=== PATIENT | male | born 1960 | race African-American/Black ===

== ENCOUNTER 2023-10-05 16:12 | Inpatient (IN) | payer BC, OTHER ==
[2023-10-05 17:26] LABS: BASO % 0.4 % (0-2.0); EOS % 0.1 % (0-4.5); HEMATOCRIT 27.9 % (35.4-49); HEMOGLOBIN 8.6 GM/dL (11.7-16.9); MCHC 30.7 g/dl (32.0-35.9); MEAN CELL VOLUME 91.2 fl (80-96); MEAN PLT VOLUME 8.5 fl (7.5-11.1); MONO % 4.6 % (3.8-10.2); NEUT % 83.9 % (42.8-82.8); PLATELET COUNT 292 10^3/uL (134-434); RBC 3.06 M/mm3 (4.00-5.60); RDW 20.1 % (11.9-15.9)
[2023-10-05 17:27] LABS: VENOUS BASE EXCESS -1.9 mmol/L (-2-2); VENOUS O2 SATURATION 59.7 % (70-80); VENOUS PCO2 40.7 mmHg (38-52); VENOUS PH 7.374 (7.310-7.410)
[2023-10-05] MEDS: SODIUM CHLORIDE 0.9% 500 ML INFUS.BAG IV ONE (17:28)
[2023-10-05 17:32] LABS: WHITE BLOOD COUNT 36.5 K/mm3 (4.0-10.0)
[2023-10-05] MEDS ORDERED: VANCOMYCIN 2,000 MG in DEXTROSE 5%-WATER - 500 ML IVPB ONE (17:32)
[2023-10-05 17:35] LABS: PROTHROMBIN TIME (PATIENT) 70.7 SEC (9.7-13.0)
[2023-10-05 17:38] LABS: ACTIVATED PTT 44.1 SECONDS (25.2-36.5)
[2023-10-05 17:43] LABS: POTASSIUM 4.6 mmol/L (3.5-5.1)
[2023-10-05 17:46] LABS: BLOOD UREA NITROGEN 16.4 mg/dL (7-18); CALCIUM 11.5 mg/dL (8.5-10.1)
[2023-10-05] MEDS ORDERED: MIDAZOLAM HCL 2 MG/2 ML SINGLE DOSE VIAL ONE (17:46)
[2023-10-05 17:47] LABS: INR 6.61 (0.83-1.09)
[2023-10-05 17:49] LABS: CREATININE 1.3 mg/dL (0.55-1.3)
[2023-10-05 17:51] LABS: BILIRUBIN,TOTAL 1.1 mg/dL (0.2-1); TOT PROT 6.3 g/dl (6.4-8.2)
[2023-10-05 17:52] LABS: LACTIC ACID 2.6 mmol/L (0.4-2.0)
[2023-10-05] MEDS: MIDAZOLAM HCL 2 MG/2 ML SINGLE DOSE VIAL IVPUSH ONE (17:54)
[2023-10-05] MEDS ORDERED: PIPERACILLIN/TAZOB 4.5 GM 4.5 GM/100 ML BAG IVPB ONE (18:15)
[2023-10-05 18:26] LABS: ANISOCYTOSIS 2+; MACROCYTOSIS 1+; OVALOCYTE 1+; TARGET CELLS 1+
[2023-10-05] MEDS ORDERED: HALOPERIDOL LACTATE 5 MG/ML ONE ×2 (19:01→20:02)
[2023-10-05] MEDS: HALOPERIDOL LACTATE 5 MG/ML IM ONE ×2 (19:08→20:11)
[2023-10-05] MEDS: PIPERACILLIN/TAZOB 4.5 GM 4.5 GM in DEXTROSE 5%-WATER 100 ML IVPB ONE (19:39)
[2023-10-05] MEDS: LACTATED RINGERS SOLUTION 1000 ML INFUS.BAG IV ONE (20:00)
[2023-10-05] MEDS: LORazepam 2 MG/ML SDV VIAL IVPUSH ONE (20:11)
[2023-10-05] MEDS: OLANZapine 5 MG TABLET PO ONE (20:20)
[2023-10-05] MEDS: VANCOMYCIN/WATER 2 GRAMS 2,000 MG/400 ML PIGGYBACK IVPB ONE (20:55)
[2023-10-05 20:56] LABS: EPI CELLS 25 /uL (0-25.1); HYALINE CASTS 15 /uL (0-3.1); URINE APPEARANCE TURBID; URINE BACTERIA 3 /uL (0-1359); URINE BILIRUBIN 1+ (NEGATIVE); URINE COLOR DK YELLOW; URINE GLUCOSE (UA) NEGATIVE (NEGATIVE); URINE KETONE TRACE (NEGATIVE); URINE LEUK ESTERASE NEGATIVE (NEGATIVE); URINE NITRITE NEGATIVE (NEGATIVE); URINE PROTEIN 1+ (NEGATIVE); URINE RBC 18 /uL (0-23.9); URINE WBC 53 /uL (0-25.8)
[2023-10-06] MEDS: SODIUM CHLORIDE 1,000 ML IV SCH (01:21)
[2023-10-06] MEDS ORDERED: PIPERACILLIN/TAZOB 4.5 GM 4.5 GM/100 ML BAG IVPB ONE (03:39)
[2023-10-06] MEDS ORDERED: oxyCODONE HCL 5 MG TABLET ONE (03:49)
[2023-10-06] MEDS: oxyCODONE HCL 5 MG TABLET PO PRN (03:56)
[2023-10-06] MEDS: PIPERACILLIN/TAZOB 4.5 GM 4.5 GM in DEXTROSE 5%-WATER 100 ML IVPB SCH ×3 (03:57→20:40)
[2023-10-06] MEDS ORDERED: HALOPERIDOL LACTATE 5 MG/ML IM ONE (04:09)
[2023-10-06] MEDS: HALOPERIDOL LACTATE 5 MG/ML IM ONE ×2 (04:30→13:24)
[2023-10-06] MEDS ORDERED: oxyCODONE HCL 5 MG TABLET PO PRN (05:46)
[2023-10-06] MEDS ORDERED: ACETAMINOPHEN 500 MG TABLET (FP) PO PRN ×2 (05:49→18:27)
[2023-10-06 06:39] LABS: HEMATOCRIT 24.6 % (35.4-49); HEMOGLOBIN 7.7 GM/dL (11.7-16.9); MCH 28.5 pg (25.7-33.7); MCHC 31.4 g/dl (32.0-35.9); MEAN CELL VOLUME 90.6 fl (80-96); MEAN PLT VOLUME 7.9 fl (7.5-11.1); PLATELET COUNT 227 10^3/uL (134-434); PROTHROMBIN TIME (PATIENT) 63.6 SEC (9.7-13.0); RBC 2.72 M/mm3 (4.00-5.60); RDW 19.3 % (11.9-15.9)
[2023-10-06 06:41] LABS: WHITE BLOOD COUNT 35.4 K/mm3 (4.0-10.0)
[2023-10-06 06:42] LABS: ACTIVATED PTT 42.7 SECONDS (25.2-36.5)
[2023-10-06 06:50] LABS: POTASSIUM 3.7 mmol/L (3.5-5.1)
[2023-10-06 06:52] LABS: MAGNESIUM 1.9 mg/dL (1.8-2.4)
[2023-10-06 06:53] LABS: ALBUMIN 1.8 g/dl (3.4-5.0); CALCIUM 10.7 mg/dL (8.5-10.1)
[2023-10-06 06:54] LABS: BILIRUBIN,DIRECT 0.8 mg/dL (0.0-0.2); BLOOD UREA NITROGEN 20.4 mg/dL (7-18)
[2023-10-06 06:55] LABS: INR 5.93 (0.83-1.09)
[2023-10-06 06:56] LABS: CREATININE 1.2 mg/dL (0.55-1.3); PHOSPHOROUS 3.9 mg/dL (2.5-4.9)
[2023-10-06 06:58] LABS: BILIRUBIN,TOTAL 1.2 mg/dL (0.2-1); TOT PROT 5.6 g/dl (6.4-8.2)
[2023-10-06] MEDS: LACTATED RINGERS SOLUTION 1,000 ML/1,000 ML INFUS.BAG IV SCH ×2 (08:50→20:14)
[2023-10-06] MEDS ORDERED: PIPERACILLIN/TAZOBACTAM 4.5 GM VIAL IVPB ONE (09:22)
[2023-10-06 09:57] LABS: ANISOCYTOSIS 1+; MACROCYTOSIS 0; OVALOCYTE 1+
[2023-10-06] MEDS: VANCOMYCIN/WATER 1250 MG 1,250 MG/250 ML BAG IVPB SCH ×2 (11:43→13:24)
[2023-10-06 12:18] LABS: LACTIC ACID 2.1 mmol/L (0.4-2.0)
[2023-10-06] MEDS: INSULIN ASPART SLIDING SCALE (NOVOLOG) 1 VIAL SQ SCH ×2 (16:32→21:51)
[2023-10-06 18:16] VITALS: BMI 36.8
[2023-10-06 19:45] LABS: ARTERIAL BLD GAS O2 SATURATION 95.2 % (95-98); ARTERIAL BLOOD GAS BASE EXCESS 1.9 mmol/L (-2-2); ARTERIAL BLOOD GAS PO2 71.3 mmHg (80-100); ARTERIAL BLOOD GAS pH 7.463 (7.350-7.450)
[2023-10-06 19:47] LABS: ALLENS TEST POSITIVE
[2023-10-06] MEDS: SODIUM CHLORIDE 1,000 ML IV STA (20:16)
[2023-10-06] MEDS: HALOPERIDOL LACTATE 5 MG/ML IM PRN (20:36)
[2023-10-06] MEDS: VANCOMYCIN PREMIX 1.75 GM 1,750 MG/350 ML PIGGYBACK IVPB SCH (21:14)
[2023-10-06] MEDS: ATORVASTATIN CA 40 MG TABLET (FP) PO SCH (21:14)
[2023-10-06] MEDS ORDERED: VANCOMYCIN PREMIX 1.75 GM 1,750 MG/350 ML PIGGYBACK IVPB SCH (22:00)
[2023-10-06] MEDS ORDERED: ATORVASTATIN CA 40 MG TABLET (FP) PO SCH (22:00)
[2023-10-07] MEDS: ACETAMINOPHEN 1000 MG/100 ML BAG IVPB PRN (00:48)
[2023-10-07 08:29] LABS: PROTHROMBIN TIME (PATIENT) 74.2 SEC (9.7-13.0)
[2023-10-07 08:40] LABS: BASO % 0.2 % (0-2.0); EOS % 0.2 % (0-4.5); HEMATOCRIT 23.8 % (35.4-49); HEMOGLOBIN 7.5 GM/dL (11.7-16.9); LYMPH % 6.6 % (8-40); MCH 28.7 pg (25.7-33.7); MCHC 31.7 g/dl (32.0-35.9); MEAN CELL VOLUME 90.8 fl (80-96); MEAN PLT VOLUME 8.4 fl (7.5-11.1); MONO % 5.4 % (3.8-10.2); NEUT % 87.6 % (42.8-82.8); PLATELET COUNT 202 10^3/uL (134-434); RBC 2.63 M/mm3 (4.00-5.60); RDW 19.6 % (11.9-15.9)
[2023-10-07 08:46] LABS: BLOOD UREA NITROGEN 16.9 mg/dL (7-18); CALCIUM 11.2 mg/dL (8.5-10.1); MAGNESIUM 1.8 mg/dL (1.8-2.4); WHITE BLOOD COUNT 42.4 K/mm3 (4.0-10.0)
[2023-10-07 08:49] LABS: PHOSPHOROUS 3.5 mg/dL (2.5-4.9)
[2023-10-07 08:52] LABS: BILIRUBIN,TOTAL 1.6 mg/dL (0.2-1)
[2023-10-07 09:12] LABS: ANISOCYTOSIS 1+; MACROCYTOSIS 1+; TARGET CELLS 1+
[2023-10-07 09:16] LABS: POTASSIUM 3.2 mmol/L (3.5-5.1)
[2023-10-07 09:22] LABS: INR 6.95 (0.83-1.09)
[2023-10-07] MEDS: KCL 10 MEQ IVPB 10 MEQ/100 ML INFUS.BAG IVPB SCH (12:16)
[2023-10-07 15:19] LABS: HEMATOCRIT 26.4 % (35.4-49); HEMOGLOBIN 8.3 GM/dL (11.7-16.9); MCH 28.5 pg (25.7-33.7); MCHC 31.6 g/dl (32.0-35.9); MEAN CELL VOLUME 90.3 fl (80-96); PLATELET COUNT 198 10^3/uL (134-434); RBC 2.92 M/mm3 (4.00-5.60); RDW 19.8 % (11.9-15.9)
[2023-10-07] MEDS: FUROSEMIDE 40 MG/4 ML INJECTABLE VIAL IVPUSH ONE (18:08)
[2023-10-08] MEDS: hydrOXYzine PAMOATE 25 MG CAPSULE (FP) PO ONE (01:16)
[2023-10-08] MEDS: LACTULOSE 20 GM/30 ML UDC (FOR RECTAL USE ONLY) PR ONE (01:28)
[2023-10-08 10:23] LABS: HEMATOCRIT 25.3 % (35.4-49); HEMOGLOBIN 7.9 GM/dL (11.7-16.9); MCH 28.1 pg (25.7-33.7); MCHC 31.2 g/dl (32.0-35.9); MEAN CELL VOLUME 90.2 fl (80-96); MEAN PLT VOLUME 8.5 fl (7.5-11.1); PLATELET COUNT 182 10^3/uL (134-434); RBC 2.81 M/mm3 (4.00-5.60); RDW 19.9 % (11.9-15.9)
[2023-10-08 10:27] LABS: WHITE BLOOD COUNT 41.6 K/mm3 (4.0-10.0)
[2023-10-08 10:38] LABS: POTASSIUM 3.2 mmol/L (3.5-5.1)
[2023-10-08 10:40] LABS: BLOOD UREA NITROGEN 21.1 mg/dL (7-18); CALCIUM 11.5 mg/dL (8.5-10.1); MAGNESIUM 1.7 mg/dL (1.8-2.4)
[2023-10-08 10:42] LABS: ALBUMIN 1.6 g/dl (3.4-5.0)
[2023-10-08 10:44] LABS: CREATININE 1.1 mg/dL (0.55-1.3); PHOSPHOROUS 4.4 mg/dL (2.5-4.9)
[2023-10-08 10:46] LABS: BILIRUBIN,TOTAL 1.8 mg/dL (0.2-1); TOT PROT 5.9 g/dl (6.4-8.2)
[2023-10-08] MEDS: INSULIN ASPART SLIDING SCALE (NOVOLOG) 1 VIAL SQ SCH (12:18)
[2023-10-08] MEDS: SODIUM CHLORIDE 1,000 ML IV SCH (12:19)
[2023-10-08] MEDS: ACETAMINOPHEN 1000 MG/100 ML BAG IVPB PRN (17:01)
[2023-10-08] MEDS: fentaNYL 75mcg/hr PATCH.TD72 TD SCH (17:55)
[2023-10-08] MEDS: POTASSIUM PHOSPHATE 15 MM in SODIUM CHLORIDE 250 ML IVPB ONE (18:05)
[2023-10-08] MEDS: CALCITONIN - SALMON SYNTHETIC 400 UNIT/2 ML VIAL IM ONE (20:52)
[2023-10-09 02:01] LABS: POTASSIUM 3.1 mmol/L (3.5-5.1)
[2023-10-09 02:04] LABS: CALCIUM 10.6 mg/dL (8.5-10.1)
[2023-10-09 02:05] LABS: ALBUMIN 1.5 g/dl (3.4-5.0); BLOOD UREA NITROGEN 26.1 mg/dL (7-18)
[2023-10-09 02:07] LABS: CREATININE 1.2 mg/dL (0.55-1.3)
[2023-10-09 02:09] LABS: BILIRUBIN,TOTAL 1.7 mg/dL (0.2-1); TOT PROT 5.7 g/dl (6.4-8.2)
[2023-10-09] MEDS: KCL 10 MEQ IVPB 10 MEQ/100 ML INFUS.BAG IVPB SCH (03:28)
[2023-10-09 07:46] LABS: HEMATOCRIT 25.4 % (35.4-49); HEMOGLOBIN 7.7 GM/dL (11.7-16.9); MCHC 30.5 g/dl (32.0-35.9); MEAN CELL VOLUME 91.8 fl (80-96); MEAN PLT VOLUME 8.8 fl (7.5-11.1); PLATELET COUNT 166 10^3/uL (134-434); RBC 2.77 M/mm3 (4.00-5.60); RDW 19.9 % (11.9-15.9)
[2023-10-09 07:52] LABS: WHITE BLOOD COUNT 43.7 K/mm3 (4.0-10.0)
[2023-10-09 07:55] LABS: ACTIVATED PTT 48.6 SECONDS (25.2-36.5)
[2023-10-09 08:04] LABS: POTASSIUM 3.7 mmol/L (3.5-5.1)
[2023-10-09 08:08] LABS: ALBUMIN 1.5 g/dl (3.4-5.0); BLOOD UREA NITROGEN 29.6 mg/dL (7-18)
[2023-10-09 08:10] LABS: CALCIUM 10.3 mg/dL (8.5-10.1)
[2023-10-09 08:11] LABS: CREATININE 1.1 mg/dL (0.55-1.3)
[2023-10-09 08:13] LABS: BILIRUBIN,TOTAL 1.7 mg/dL (0.2-1); TOT PROT 5.8 g/dl (6.4-8.2)
[2023-10-09 08:43] LABS: PROTHROMBIN TIME (PATIENT) 132.8 SEC (9.7-13.0)
[2023-10-09 08:46] LABS: INR 12.43 (0.83-1.09)
[2023-10-09] MEDS: CALCITONIN - SALMON SYNTHETIC 400 UNIT/2 ML VIAL IM ONE (09:36)
[2023-10-09] MEDS ORDERED: CALCITONIN - SALMON SYNTHETIC 400 UNIT/2 ML VIAL IM SCH (10:00)
[2023-10-09 10:45] LABS: ANISOCYTOSIS 1+; MACROCYTOSIS 0
[2023-10-09] MEDS: VANCOMYCIN PREMIX 1.5 GM 1,500 MG/300 ML BAG IVPB ONE (13:34)
[2023-10-09] MEDS: THIAMINE HCL 200 MG/2 ML VIAL IVPB ONE (15:20)
[2023-10-09] MEDS: SODIUM CHLORIDE 1,000 ML IV SCH (15:21)
[2023-10-09] MEDS: AMINO ACIDS 4.25%/D5W 1,000 ML IV SCH (16:36)
[2023-10-10 07:05] LABS: HEMATOCRIT 24.7 % (35.4-49); HEMOGLOBIN 7.5 GM/dL (11.7-16.9); MCH 28.2 pg (25.7-33.7); MCHC 30.5 g/dl (32.0-35.9); MEAN CELL VOLUME 92.2 fl (80-96); MEAN PLT VOLUME 9.2 fl (7.5-11.1); PLATELET COUNT 153 10^3/uL (134-434); RBC 2.68 M/mm3 (4.00-5.60); RDW 20.1 % (11.9-15.9)
[2023-10-10 07:15] LABS: ACTIVATED PTT 49.7 SECONDS (25.2-36.5)
[2023-10-10 07:33] LABS: WHITE BLOOD COUNT 42.9 K/mm3 (4.0-10.0)
[2023-10-10 07:34] LABS: ALBUMIN 1.4 g/dl (3.4-5.0)
[2023-10-10 07:36] LABS: BILIRUBIN,DIRECT 1.3 mg/dL (0.0-0.2); PHOSPHOROUS 2.7 mg/dL (2.5-4.9)
[2023-10-10 07:38] LABS: BILIRUBIN,TOTAL 1.7 mg/dL (0.2-1); TOT PROT 5.7 g/dl (6.4-8.2)
[2023-10-10 08:34] LABS: INR > 15.00 (0.83-1.09)
[2023-10-10 08:35] LABS: ANISOCYTOSIS 1+; MACROCYTOSIS 1+; TARGET CELLS 1+
[2023-10-10] MEDS: SODIUM CHLORIDE 1,000 ML IV STA (12:03)
[2023-10-10] MEDS: SODIUM CHLORIDE 1,000 ML IV SCH (16:04)
[2023-10-10] MEDS ORDERED: ACETAMINOPHEN INJECTION 100 ML IVPB ONE (18:19)
[2023-10-10] MEDS: PHYTONADIONE 10 MG/1 ML AMP SQ ONE (18:24)
[2023-10-10] MEDS: VANCOMYCIN/WATER FOR INJ (PEG) 1,000 MG/200 ML BAG IVPB ONE (18:24)
[2023-10-10] MEDS: ACETAMINOPHEN 1000 MG/100 ML BAG IVPB ONE (18:24)
[2023-10-11] MEDS: ACETAMINOPHEN 1000 MG/100 ML BAG IVPB ONE (05:16)
[2023-10-11 08:08] LABS: MCHC 30.1 g/dl (32.0-35.9); MEAN CELL VOLUME 93.1 fl (80-96); MEAN PLT VOLUME 9.1 fl (7.5-11.1); PLATELET COUNT 147 10^3/uL (134-434); RBC 2.47 M/mm3 (4.00-5.60); RDW 20.6 % (11.9-15.9)
[2023-10-11 08:11] LABS: PROTHROMBIN TIME (PATIENT) 58.7 SEC (9.7-13.0)
[2023-10-11 08:24] LABS: INR 5.46 (0.83-1.09)
[2023-10-11 08:26] LABS: HEMOGLOBIN 6.9 GM/dL (11.7-16.9); WHITE BLOOD COUNT 39.2 K/mm3 (4.0-10.0)
[2023-10-11 09:25] LABS: ANISOCYTOSIS 2+; MACROCYTOSIS 0
[2023-10-11 09:37] LABS: PHOSPHOROUS 2.7 mg/dL (2.5-4.9)
[2023-10-11] MEDS: ACETAMINOPHEN 1000 MG/100 ML BAG IVPB PRN (11:31)
[2023-10-11] MEDS: LACTULOSE 20 GM/30 ML UDC (FOR RECTAL USE ONLY) PR ONE (13:28)
[2023-10-11 16:48] LABS: HEMATOCRIT 22.2 % (35.4-49); MCH 27.6 pg (25.7-33.7); MEAN PLT VOLUME 9.3 fl (7.5-11.1); PLATELET COUNT 130 10^3/uL (134-434); RBC 2.41 M/mm3 (4.00-5.60); RDW 20.8 % (11.9-15.9)
[2023-10-11 16:53] LABS: HEMOGLOBIN 6.7 GM/dL (11.7-16.9)
[2023-10-11] MEDS: FENTANYL PATCH WASTE TD PRN (19:29)
[2023-10-11] MEDS: INSULIN (LEVEMIR) 100 UNITS/ML UNITS SQ SCH (22:46)
[2023-10-12 09:51] LABS: HEMATOCRIT 25.1 % (35.4-49); HEMOGLOBIN 7.8 GM/dL (11.7-16.9); MCH 27.3 pg (25.7-33.7); MCHC 30.9 g/dl (32.0-35.9); MEAN CELL VOLUME 88.2 fl (80-96); MEAN PLT VOLUME 9.6 fl (7.5-11.1); PLATELET COUNT 124 10^3/uL (134-434); RBC 2.84 M/mm3 (4.00-5.60); RDW 24.7 % (11.9-15.9)
[2023-10-12 10:01] LABS: INR 2.51 (0.83-1.09); PROTHROMBIN TIME (PATIENT) 28.1 SEC (9.7-13.0)
[2023-10-12 10:02] LABS: WHITE BLOOD COUNT 38.1 K/mm3 (4.0-10.0)
[2023-10-12 10:03] LABS: ALBUMIN 1.4 g/dl (3.4-5.0); CALCIUM 9.5 mg/dL (8.5-10.1)
[2023-10-12 10:06] LABS: CREATININE 1.8 mg/dL (0.55-1.3)
[2023-10-12 10:07] LABS: PHOSPHOROUS 2.3 mg/dL (2.5-4.9)
[2023-10-12 10:08] LABS: BILIRUBIN,TOTAL 3.4 mg/dL (0.2-1); TOT PROT 5.6 g/dl (6.4-8.2)
[2023-10-12] MEDS ORDERED: KCL 10 MEQ IVPB 10 MEQ/100 ML INFUS.BAG IVPB SCH (12:00)
[2023-10-12] MEDS: POTASSIUM PHOSPHATE 30 MM in SODIUM CHLORIDE 500 ML IVPB ONE (13:44)
[2023-10-12] MEDS: VANCOMYCIN/WATER FOR INJ (PEG) 1,000 MG/200 ML BAG IVPB ONE (14:12)
[2023-10-12] MEDS: LACTULOSE 10 GM/15 ML BULK BOTTLE RC SCH (14:52)
[2023-10-12] MEDS: LACTULOSE 20 GM/30 ML UDC (FOR ORAL USE ONLY) PO SCH (18:34)
[2023-10-12] MEDS: INSULIN (LEVEMIR) 100 UNITS/ML UNITS SQ SCH (22:24)
[2023-10-12] MEDS: LACTULOSE 20 GM/30 ML UDC (FOR ORAL USE ONLY) NGT SCH (23:13)
[2023-10-13 08:23] LABS: INR 2.19 (0.83-1.09); PROTHROMBIN TIME (PATIENT) 24.2 SEC (9.7-13.0)
[2023-10-13 08:24] LABS: HEMATOCRIT 24.1 % (35.4-49); HEMOGLOBIN 7.3 GM/dL (11.7-16.9); MCH 27.3 pg (25.7-33.7); MCHC 30.4 g/dl (32.0-35.9); MEAN CELL VOLUME 89.8 fl (80-96); MEAN PLT VOLUME 10.2 fl (7.5-11.1); PLATELET COUNT 129 10^3/uL (134-434); RBC 2.69 M/mm3 (4.00-5.60); RDW 24.6 % (11.9-15.9)
[2023-10-13 10:07] LABS: ANISOCYTOSIS 3+; MACROCYTOSIS 0; TARGET CELLS 2+
[2023-10-13] MEDS: VANCOMYCIN 500 MG in DEXTROSE 5%-WATER 100 ML IVPB ONE (13:51)
[2023-10-13] MEDS: morphine SULFATE 4 MG/ML VIAL IVPUSH PRN (15:16)
[2023-10-13] MEDS ORDERED: LACTATED RINGERS SOLUTION 1,000 ML/1,000 ML INFUS.BAG IV SCH (18:15)
[2023-10-13] MEDS: LACTATED RINGERS SOLUTION 1,000 ML/1,000 ML INFUS.BAG IV SCH (18:43)
[2023-10-13 19:20] LABS: HEMATOCRIT 23.2 % (35.4-49); MCH 27.3 pg (25.7-33.7); MEAN CELL VOLUME 91.1 fl (80-96); MEAN PLT VOLUME 9.9 fl (7.5-11.1); PLATELET COUNT 119 10^3/uL (134-434); RBC 2.55 M/mm3 (4.00-5.60); RDW 25.2 % (11.9-15.9)
[2023-10-13 19:26] LABS: WHITE BLOOD COUNT 36.6 K/mm3 (4.0-10.0)
[2023-10-13 19:57] LABS: LACTIC ACID 3.4 mmol/L (0.4-2.0)
[2023-10-13] MEDS ORDERED: ACETAMINOPHEN 500 MG TABLET (FP) PO PRN (20:32)
[2023-10-13] MEDS: ACETAMINOPHEN 1000 MG/100 ML BAG IVPB ONE (20:46)
[2023-10-13] MEDS: SODIUM CHLORIDE 1,000 ML IV STA (20:47)
[2023-10-13 20:57] LABS: MAGNESIUM 1.9 mg/dL (1.8-2.4)
[2023-10-13 21:00] LABS: PHOSPHOROUS 3.2 mg/dL (2.5-4.9)
[2023-10-13] MEDS: INSULIN (LEVEMIR) 100 UNITS/ML UNITS SQ SCH (21:37)
[2023-10-14 00:10] LABS: LACTIC ACID 2.7 mmol/L (0.4-2.0)
[2023-10-14] MEDS: MAGNESIUM SULF 50% (8.12 MEQ/2 ML-1 GM VIAL) IVPB ONE (00:20)
[2023-10-14] MEDS: LACTATED RINGERS SOLUTION 1,000 ML/1,000 ML INFUS.BAG IV STA (08:56)
[2023-10-14 09:43] LABS: HEMATOCRIT 21.4 % (35.4-49); MCH 27.3 pg (25.7-33.7); MCHC 30.3 g/dl (32.0-35.9); MEAN CELL VOLUME 90.2 fl (80-96); MEAN PLT VOLUME 9.6 fl (7.5-11.1); PLATELET COUNT 119 10^3/uL (134-434); RBC 2.38 M/mm3 (4.00-5.60); RDW 24.6 % (11.9-15.9)
[2023-10-14 09:45] LABS: INR 2.36 (0.83-1.09)
[2023-10-14 09:55] LABS: POTASSIUM 3.2 mmol/L (3.5-5.1)
[2023-10-14 10:04] LABS: ALBUMIN 1.2 g/dl (3.4-5.0); CALCIUM 8.9 mg/dL (8.5-10.1)
[2023-10-14 10:05] LABS: BLOOD UREA NITROGEN 86.1 mg/dL (7-18); MAGNESIUM 2.2 mg/dL (1.8-2.4)
[2023-10-14 10:08] LABS: BILIRUBIN,DIRECT 3.8 mg/dL (0.0-0.2); CREATININE 1.9 mg/dL (0.55-1.3); PHOSPHOROUS 2.8 mg/dL (2.5-4.9)
[2023-10-14 10:09] LABS: BILIRUBIN,TOTAL 4.5 mg/dL (0.2-1); TOT PROT 5.4 g/dl (6.4-8.2)
[2023-10-14 10:14] LABS: WHITE BLOOD COUNT 35.5 K/mm3 (4.0-10.0)
[2023-10-14 10:15] LABS: HEMOGLOBIN 6.5 GM/dL (11.7-16.9)
[2023-10-14] MEDS: VANCOMYCIN 500 MG in DEXTROSE 5%-WATER - 100 ML IVPB ONE (14:59)
[2023-10-14] MEDS: KCL 10 MEQ IVPB 10 MEQ/100 ML INFUS.BAG IVPB SCH ×2 (15:30→18:39)
[2023-10-14] MEDS: LACTULOSE 20 GM/30 ML UDC (FOR RECTAL USE ONLY) PR SCH (15:30)
[2023-10-15 07:46] LABS: HEMATOCRIT 24.9 % (35.4-49); HEMOGLOBIN 7.6 GM/dL (11.7-16.9); MCHC 30.7 g/dl (32.0-35.9); MEAN CELL VOLUME 91.4 fl (80-96); RBC 2.73 M/mm3 (4.00-5.60)
[2023-10-15 07:52] LABS: INR 2.28 (0.83-1.09); PROTHROMBIN TIME (PATIENT) 25.2 SEC (9.7-13.0)
[2023-10-15 07:59] LABS: WHITE BLOOD COUNT 36.8 K/mm3 (4.0-10.0)
[2023-10-15 09:06] LABS: ANISOCYTOSIS 3+; CORRECTED WBC 32.86 K/mm3; MACROCYTOSIS 1+; TARGET CELLS 1+
[2023-10-15 11:11] LABS: POTASSIUM 3.8 mmol/L (3.5-5.1)
[2023-10-15 11:13] LABS: ALBUMIN 1.1 g/dl (3.4-5.0); BLOOD UREA NITROGEN 90.1 mg/dL (7-18); CALCIUM 8.8 mg/dL (8.5-10.1)
[2023-10-15 11:16] LABS: CREATININE 1.9 mg/dL (0.55-1.3)
[2023-10-15 11:18] LABS: TOT PROT 5.5 g/dl (6.4-8.2)
[2023-10-15] MEDS: SODIUM CHLORIDE 1,000 ML IV STA (13:54)
[2023-10-15] MEDS ORDERED: LACTULOSE 20 GM/30 ML UDC (FOR RECTAL USE ONLY) PR SCH (14:53)
[2023-10-15] MEDS: LACTULOSE 20 GM/30 ML UDC (FOR RECTAL USE ONLY) PR SCH (15:36)
[2023-10-15] MEDS: morphine SULFATE 4 MG/ML VIAL IVPUSH PRN (22:28)
[2023-10-16 09:24] LABS: HEMATOCRIT 23.3 % (35.4-49); HEMOGLOBIN 7.1 GM/dL (11.7-16.9); MCH 28.2 pg (25.7-33.7); MCHC 30.3 g/dl (32.0-35.9); MEAN CELL VOLUME 93.2 fl (80-96); MEAN PLT VOLUME 10.1 fl (7.5-11.1); PLATELET COUNT 148 10^3/uL (134-434); RDW 22.3 % (11.9-15.9)
[2023-10-16 09:33] LABS: WHITE BLOOD COUNT 36.3 K/mm3 (4.0-10.0)
[2023-10-16 09:41] LABS: POTASSIUM 4.1 mmol/L (3.5-5.1)
[2023-10-16 09:50] LABS: ALBUMIN 1.1 g/dl (3.4-5.0); BLOOD UREA NITROGEN 102.4 mg/dL (7-18); CALCIUM 8.9 mg/dL (8.5-10.1); MAGNESIUM 2.3 mg/dL (1.8-2.4)
[2023-10-16 09:53] LABS: CREATININE 2.4 mg/dL (0.55-1.3); PHOSPHOROUS 3.9 mg/dL (2.5-4.9)
[2023-10-16 09:56] LABS: TOT PROT 5.6 g/dl (6.4-8.2)
[2023-10-16 10:04] LABS: ANISOCYTOSIS 2+; CORRECTED WBC 31.84 K/mm3; MACROCYTOSIS 1+; TARGET CELLS 1+
[2023-10-17 06:36] LABS: INR 2.8 (0.83-1.09); PROTHROMBIN TIME (PATIENT) 30.7 SEC (9.7-13.0)
[2023-10-17 06:40] LABS: HEMATOCRIT 22.9 % (35.4-49); MCH 28.7 pg (25.7-33.7); MCHC 30.6 g/dl (32.0-35.9); PLATELET COUNT 150 10^3/uL (134-434); RBC 2.44 M/mm3 (4.00-5.60); RDW 22.9 % (11.9-15.9)
[2023-10-17 06:58] LABS: CHLORIDE 123 mmol/L (98-107); POTASSIUM 3.9 mmol/L (3.5-5.1); SODIUM 150 mmol/L (136-145)
[2023-10-17 07:04] LABS: CALCIUM 8.3 mg/dL (8.5-10.1)
[2023-10-17 07:05] LABS: ANION GAP 10 mmol/L (4-13); CO2 18 mmol/L (21-32); GLUCOSE,RANDOM 198 mg/dL (74-106); WHITE BLOOD COUNT 35.4 K/mm3 (4.0-10.0)
[2023-10-17 07:08] LABS: CREATININE 2.9 mg/dL (0.55-1.3); SGOT/AST 214 U/L (15-37); SGPT/ALT 42 U/L (13-61)
[2023-10-17 07:10] LABS: BILIRUBIN,TOTAL 6.1 mg/dL (0.2-1); TOT PROT 5.7 g/dl (6.4-8.2)
[2023-10-17 07:12] LABS: ALK PHOS 327 U/L (45-117)
[2023-10-17] MEDS: LACTULOSE 20 GM/30 ML UDC (FOR RECTAL USE ONLY) PR SCH (11:49)
[2023-10-18] MEDS ORDERED: SODIUM CHLORIDE 500 ML IV STA (01:03)
[2023-10-18 08:46] LABS: CHLORIDE 123 mmol/L (98-107); POTASSIUM 4.3 mmol/L (3.5-5.1); SODIUM 148 mmol/L (136-145)
[2023-10-18 08:54] LABS: HEMATOCRIT 23.1 % (35.4-49); HEMOGLOBIN 7.1 GM/dL (11.7-16.9); MCH 29.2 pg (25.7-33.7); MCHC 30.7 g/dl (32.0-35.9); MEAN PLT VOLUME 9.8 fl (7.5-11.1); PLATELET COUNT 152 10^3/uL (134-434); RBC 2.43 M/mm3 (4.00-5.60); RDW 23.5 % (11.9-15.9)
[2023-10-18 08:57] LABS: WHITE BLOOD COUNT 41.4 K/mm3 (4.0-10.0)
[2023-10-18 08:58] LABS: ALBUMIN 1.1 g/dl (3.4-5.0); ANION GAP 9 mmol/L (4-13); CALCIUM 8.6 mg/dL (8.5-10.1); CO2 16 mmol/L (21-32); GLUCOSE,RANDOM 191 mg/dL (74-106)
[2023-10-18 09:01] LABS: CREATININE 3.6 mg/dL (0.55-1.3); SGOT/AST 220 U/L (15-37)
[2023-10-18 09:02] LABS: SGPT/ALT 49 U/L (13-61)
[2023-10-18 09:03] LABS: BILIRUBIN,TOTAL 6.6 mg/dL (0.2-1); TOT PROT 5.9 g/dl (6.4-8.2)
[2023-10-18 09:04] LABS: ALK PHOS 319 U/L (45-117)
[2023-10-18 09:05] LABS: BLOOD UREA NITROGEN 129.8 mg/dL (7-18)
[2023-10-19 02:31] LABS: ARTERIAL BLD GAS O2 SATURATION 90.1 % (95-98); ARTERIAL BLOOD GAS PO2 103.7 mmHg (80-100)
[2023-10-19 02:39] LABS: ARTERIAL BLOOD GAS pH 6.809 (7.350-7.450)
[2023-10-19] MEDS: EPINEPHrine 1:10,000 (P-F SYR) 1 MG/10 ML DISP.SYRIN IVPUSH ONE ×2 (03:05→03:35)
[2023-10-19] MEDS: NOREPINEPHRINE 0.9 % NACL 8 MG/250 ML BAG IVPB SCH (03:30)
[2023-10-19 04:08] LABS: PROTHROMBIN TIME (PATIENT) 45.4 SEC (9.7-13.0)
[2023-10-19] MEDS ORDERED: HYDROCORTISONE SOD SUCCINATE 100 MG/2 ML VIAL ONE (04:08)
[2023-10-19] MEDS: VASopressin 40 UNITS/100 ML BAG IV SCH (04:11)
[2023-10-19] MEDS: HYDROCORTISONE SOD SUCCINATE 100 MG/2 ML VIAL IVPUSH SCH (04:11)
[2023-10-19 04:18] LABS: CHLORIDE 123 mmol/L (98-107); SODIUM 151 mmol/L (136-145)
[2023-10-19] MEDS ORDERED: EPINEPHrine/PF 1 MG/1 ML (1:1,000) AMPULE ONE ×2 (04:18→04:32)
[2023-10-19 04:20] LABS: ALBUMIN 0.9 g/dl (3.4-5.0); ANION GAP 16 mmol/L (4-13); CALCIUM 8.8 mg/dL (8.5-10.1); CO2 11 mmol/L (21-32); GLUCOSE,RANDOM 100 mg/dL (74-106); MAGNESIUM 2.4 mg/dL (1.8-2.4)
[2023-10-19 04:23] LABS: CREATININE 4.6 mg/dL (0.55-1.3); SGPT/ALT 60 U/L (13-61)
[2023-10-19 04:24] LABS: SGOT/AST 523 U/L (15-37)
[2023-10-19 04:25] LABS: BILIRUBIN,TOTAL 5.4 mg/dL (0.2-1); TOT PROT 5.5 g/dl (6.4-8.2)
[2023-10-19] MEDS: EPINEPHrine 1:1,000 1,000 MCG in SODIUM CHLORIDE 249 ML IVPB SCH (04:30)
[2023-10-19 04:37] LABS: EPI CELLS 30 /uL (0-25.1); HYALINE CASTS 13 /uL (0-3.1); URINE APPEARANCE TURBID; URINE BILIRUBIN 3+ (NEGATIVE); URINE COLOR DK YELLOW; URINE GLUCOSE (UA) NEGATIVE (NEGATIVE); URINE KETONE NEGATIVE (NEGATIVE); URINE LEUK ESTERASE 2+ (NEGATIVE); URINE NITRITE POSITIVE (NEGATIVE); URINE PROTEIN 1+ (NEGATIVE); URINE WBC 158 /uL (0-25.8)
[2023-10-19] MEDS: PIPERACILLIN/TAZOB 2.25 GM 2.25 GM in DEXTROSE 5%-WATER - 50 ML IVPB SCH (04:37)
[2023-10-19 04:49] LABS: ARTERIAL BLD GAS O2 SATURATION 88.8 % (95-98); ARTERIAL BLOOD GAS BASE EXCESS -27.8 mmol/L (-2-2); ARTERIAL BLOOD GAS PO2 114.6 mmHg (80-100)
[2023-10-19 04:52] LABS: VENT MODE V-A/C; VENT RATE 20
[2023-10-19] MEDS: CALCIUM GLUCONATE 10% - 1,000 MG/10 ML VIAL IVPB ONE (04:52)
[2023-10-19] MEDS: SODIUM BICARBONATE 8.4% 50 MEQ/50 ML DISP.SYRIN IVPUSH ONE ×2 (04:52→04:58)
[2023-10-19] MEDS: DEXTROSE 50%-WATER - 25 GM/50 ML VIAL IVPUSH ONE (04:52)
[2023-10-19] MEDS: INSULIN REGULAR HUMAN 100 UNITS/ML *VIAL IVPUSH ONE (04:52)
[2023-10-19 04:53] LABS: ARTERIAL BLOOD GAS pH < 6.717 (7.350-7.450)
[2023-10-19] MEDS: CALCIUM GLUCONATE IN NACL 1 GM/50 ML BAG IVPB ONE (04:56)
[2023-10-19] MEDS: DEXTROSE 50%-WATER 25 GM/50 ML DISP.SYRIN IVPUSH ONE (04:57)
[2023-10-19 04:58] LABS: HEMATOCRIT 23.6 % (35.4-49); MCH 29.5 pg (25.7-33.7); MCHC 27.6 g/dl (32.0-35.9); MEAN CELL VOLUME 106.9 fl (80-96); MEAN PLT VOLUME 9.7 fl (7.5-11.1); PLATELET COUNT 129 10^3/uL (134-434); RBC 2.21 M/mm3 (4.00-5.60); RDW 26.7 % (11.9-15.9)
[2023-10-19 05:00] LABS: ALK PHOS 270 U/L (45-117); BLOOD UREA NITROGEN 139.6 mg/dL (7-18); LACTIC ACID 13.4 mmol/L (0.4-2.0)
[2023-10-19 05:01] LABS: WHITE BLOOD COUNT 23.9 K/mm3 (4.0-10.0)
[2023-10-19 05:04] LABS: HEMOGLOBIN 6.5 GM/dL (11.7-16.9)
[2023-10-19 05:06] VITALS: RESP 30
[2023-10-19 05:11] LABS: PHOSPHOROUS > 9.0 mg/dL (2.5-4.9)
[2023-10-19 05:13] LABS: INR 4.19 (0.83-1.09)
[2023-10-19] MEDS: DEXTROSE 5%-WATER - 1,000 ML with SODIUM BICARBONATE 8.4% - 150 MEQ IV SCH (05:16)
[2023-10-19 06:04] VITALS: BP 69/32; PULSE 84; TEMP 96
[2023-10-19] MEDS ORDERED: FENTANYL PATCH WASTE TD PRN (06:36)
[2023-10-19] MEDS: INSULIN ASPART SLIDING SCALE (NOVOLOG) 1 VIAL SQ SCH (06:38)
[2023-10-19] MEDS: INSULIN (LEVEMIR) 100 UNITS/ML UNITS SQ SCH (06:38)
[2023-10-19 06:47] LABS: ROULEAU 3+
[2023-10-19 07:36] LABS: URINE BACTERIA 2.8 /uL (0-1359); YEAST NEGATIVE (NEGATIVE)
[2023-10-19] MEDS ORDERED: PIPERACILLIN/TAZOB 2.25 GM 2.25 GM in DEXTROSE 5%-WATER - 50 ML IVPB SCH (10:00)
[2023-10-19] MEDS ORDERED: PANTOPRAZOLE SODIUM 40 MG VIAL IVPUSH SCH (10:00)
[2023-10-19] MEDS ORDERED: MUPIROCIN 2% TOPICAL OINTMENT FOR DECOLONIZATION NS SCH (10:00)
[2023-10-19] MEDS ORDERED: LACTULOSE 20 GM/30 ML UDC (FOR RECTAL USE ONLY) PR SCH (10:00)
[2023-10-19] MEDS ORDERED: AMINO ACIDS 4.25%/D5W 1,000 ML IV SCH (15:00)
[2023-10-19] MEDS ORDERED: CHLORHEXIDINE GLUCONATE 4% CLEANSER FOR DECOLONIZATION TP SCH (22:00)
[2023-10-20] MEDS ORDERED: PIPERACILLIN/TAZOB 2.25 GM 2.25 GM in DEXTROSE 5%-WATER - 50 ML IVPB SCH (02:00)
[2023-10-20] MEDS ORDERED: fentaNYL 75mcg/hr PATCH.TD72 TD SCH (17:45)
== END 2023-10-19 09:30 | disposition expired | DRG 578 ==
LOC: JER 16:12 → JERBED 22:27 → J5S 10-06 08:21 → J4S 10-06 18:04 → JICU 10-19 03:03
PROVIDERS: ADMIT Internal Medicine; ATTEND Internal Medicine Pulmonary Disease
PROC: 06HM33Z Insertion of Infusion Device into Right Femoral Vein, Percutaneous Approach (ICD-10-PCS; principal; 2023-10-19)
PROC: 03HY32Z Insertion of Monitoring Device into Upper Artery, Percutaneous Approach (ICD-10-PCS; 2023-10-19)
PROC: B54BZZA Ultrasonography of Right Lower Extremity Veins, Guidance (ICD-10-PCS; 2023-10-19)
PROC: 5A1935Z Respiratory Ventilation, Less than 24 Consecutive Hours (ICD-10-PCS; 2023-10-19)
PROC: 0BH17EZ Insertion of Endotracheal Airway into Trachea, Via Natural or Artificial Opening (ICD-10-PCS; 2023-10-19)
PROC: 4A133B1 Monitoring of Arterial Pressure, Peripheral, Percutaneous Approach (ICD-10-PCS; 2023-10-19)
PROC: 4A133J1 Monitoring of Arterial Pulse, Peripheral, Percutaneous Approach (ICD-10-PCS; 2023-10-19)
DX: A41.9 Sepsis, unspecified organism (principal); J44.9 Chronic obstructive pulmonary disease, unspecified; E11.65 Type 2 diabetes mellitus with hyperglycemia; C25.2 Malignant neoplasm of tail of pancreas; C78.7 Secondary malignant neoplasm of liver and intrahepatic bile duct; D68.9 Coagulation defect, unspecified; E87.0 Hyperosmolality and hypernatremia; N17.9 Acute kidney failure, unspecified; E87.20 Acidosis, unspecified; R65.21 Severe sepsis with septic shock; J96.01 Acute respiratory failure with hypoxia; E78.5 Hyperlipidemia, unspecified; K21.9 Gastro-esophageal reflux disease without esophagitis; E83.52 Hypercalcemia; G93.41 Metabolic encephalopathy; I10 Essential (primary) hypertension; D63.0 Anemia in neoplastic disease; R45.1 Restlessness and agitation; E87.6 Hypokalemia; R91.8 Other nonspecific abnormal finding of lung field; E83.39 Other disorders of phosphorus metabolism; K76.82 Hepatic encephalopathy
CPT/HCPCS: 0241U-QW; 31500; 36415; 36430; 36600; 70450-TC; 70551-TC; 71045-TC-FY; 71046-TC-FY; 71250-TC; 74176-TC; 80048; 80053; 80076; 81003; 82140; 82247; 82248; 82272; 82310; 82550; 82728; 82803; 82962; 83540; 83550; 83605; 83735; 84100; 84484; 85025; 85027; 85220; 85230; 85260; 85379; 85384; 85610; 85730; 86850; 86900; 86901; 86922; 87040; 87086; 87899; 93005; 93010; 94002; 99285-25; E1399; G0480; J0131; J3370; J3490; P9038; P9058